=== PATIENT | male | born 1965 | race Caucasian/White ===

== ENCOUNTER 2019-02-08 13:25 | Emergency (ER) | payer BC ==
[~2019-02-08] VITALS: Ht 190.5 cm; Wt 120.2 kg
--- OUTSIDE RECORDS SUMMARY | 2019-02-08 13:29 | XMS REPORT | Clinical Summary ---
Author Author [facility] Address Unknown Phone Unavailable Care Team Providers Care Nitrate Operator Name Role Phone PCP Unavailable Allergies No Known Allergies Medications End Date Status Medication Sig Dispensed Refills Start Date Active Missing or Non-Formulary Eliquis 5mg 0 Medication BID . 01/13/2019 metoprolol (LOPRESSOR) 50 Take 1 tablet 60 tablet 1 MG tablet (50 mg total) 8 by mouth 2 (two) times daily. 01/13/2019 furosemide (LASIX) 40 MG Take 1 tablet 30 tablet 1 tablet (40 mg total) 8 by mouth daily. Active Problems Problem Noted Date Atrial fibrillation with RVR 01/12/2018 Social History Date Tobacco Use Types Packs/Day Years Used Never Smoker Smokeless Tobacco: Never Used Sex Assigned at Date Recorded Not on file Industry Job Start Date Occupation Not on file Not on file Not on file Travel End Travel History Travel Start No recent travel history available. Last Filed Vital Signs Not on file Plan of Treatment Not on file Procedures Comments Procedure Name Priority Date/Time Associated Diagnosis RHYTHM STRIP - SCAN 08/30/2018 5:50 PM CDT after 02/07/2018 Results * RHYTHM STRIP - SCAN (08/30/2018 5:50 PM CDT) Narrative Performed At after 02/07/2018 Insurance Payer Benefit Subscriber ID Type Phone Address Plan / Group BLUE [employer]UE [employer] BCBS OS xxxxxxxxxxxx PPO [phone] [address] [place]/PP[place] [address] O Advance Directives For more information, please contact: [address] [address] Date Inactivated Comments Code Status Date Activated 01/13/2018 2:35 PM Full Code 01/12/2018 3:51 PM This code status was determined by: Patient 01/12/2018 3:51 PM Full Code 01/12/2018 1:48 PM This code status was determined by: Patient
--- OUTSIDE RECORDS SUMMARY | 2019-02-08 13:29 | XMS REPORT ---
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 Allergies, Adverse Reactions, Alerts Allergy Name Allergy Type Status Severity Reaction(s) Onset Date Inactive Date Treating Clinician Comments No Known Allergies DA Active U 2018-05-30 00:00:00 Medications This patient has no known medications. Results Test Description Test Time Test Comments Text Results Atomic Results Result Comments HEMOGLOBIN A1C 2018-01-13 09:17:00 HEMOGLOBIN A1C (BEAKER) (test xxdd=416) 5.4 % 4.3-6.1 RESPIRATORY PANEL [id number] 06:05:00* Test Item Value Reference Range Comments HUMAN METAPNEUMOVIRUS (BEAKER) (test uunp=3681) Not detected Not detected, Equivocal RHINOVIRUS (BEAKER) (test wopw=4271) Not detected Not detected, Equivocal INFLUENZA A (BEAKER) (test dedx=5006) Not detected Not detected, Equivocal INFLUENZA A (NO SUBTYPE) (test iwnj=3630) Not detected, Equivocal INFLUENZA A SUBTYPE H1 (BEAKER) (test acux=7728) Not detected, Equivocal INFLUENZA A SUBTYPE H3 (BEAKER) (test uonz=4537) Not detected, Equivocal INFLUENZA A SUBTYPE H1-2009 (BEAKER) (test hjps=6520) Not detected, Equivocal INFLUENZA B (BEAKER) (test bfah=8216) Not detected Not detected, Equivocal RESPIRATORY SYNCYTIAL VIRUS (BEAKER) (test zghn=9380) Not detected Not detected, Equivocal PARAINFLUENZA VIRUS 1 (BEAKER) (test jnfk=8124) Not detected Not detected, Equivocal PARAINFLUENZA VIRUS 2 (BEAKER) (test ibvz=2075) Not detected Not detected, Equivocal PARAINFLUENZA VIRUS 3 (BEAKER) (test hmlh=3837) Not detected Not detected, Equivocal PARAINFLUENZA VIRUS 4 (BEAKER) (test hyhl=9319) Not detected Not detected, Equivocal ADENOVIRUS (BEAKER) (test scaf=7039) Not detected Not detected, Equivocal CORONAVIRUS 229E (BEAKER) (test ceuu=0650) Not detected Not detected, Equivocal CORONAVIRUS HKU1 (BEAKER) (test grgc=4593) Not detected Not detected, Equivocal CORONAVIRUS NL63 (BEAKER) (test twbn=1502) Not detected Not detected, Equivocal CORONAVIRUS OC43 (BEAKER) (test ufhz=7219) Not detected Not detected, Equivocal BORDETELLA PERTUSSIS (BEAKER) (test mhnz=8832) Not detected Not detected, Equivocal CHLAMYDOPHILA PNEUMONIAE (BEAKER) (test hrqg=5704) Not detected Not detected, Equivocal MYCOPLASMA PNEUMONIAE (BEAKER) (test ydxm=0666) Not detected Not detected, Equivocal Other viruses and bacteria not targeted by this PCR panel cannot be excluded; th erefore clinical correlation and follow up of serology, culture results, and oth er molecular studies is required. The results are not intended to be used as the sole means for clinical diagnosis or patient management decisions. This sample was tested at the [facility] using the [employer] Film[employer] rray Respiratory Panel. It is FDA cleared and has been verified and approved by the [facility] for clinical use on nasal swab specim ens. It is not FDA-cleared for use on bronchial wash/lavage samples. However, fo r this sample type, validation was performed and test characteristics were deter mined and approved, by [facility] Status4 Diagnostics laboratory for clinical use u nder the Clinical Laboratory Improvement Amendments (CLIA) of 1988 requirements. Therefore, FDA clearance is not required. This laboratory is CLIA-certified and [employer] [place] (CAP)-accredited to perform high complexity t esting.CBC W/PLT COUNT & AUTO [id number] 05:46:00* Test Item Value Reference Range Comments WHITE BLOOD CELL COUNT (BEAKER) (test uyon=728) 15.0 K/ L 3.5-10.5 RED BLOOD CELL COUNT (BEAKER) (test grus=087) 4.05 M/ L 4.63-6.08 HEMOGLOBIN (BEAKER) (test slre=750) 12.4 GM/DL 13.7-17.5 HEMATOCRIT (BEAKER) (test hjgg=065) 39.2 % 40.1-51.0 MEAN CORPUSCULAR VOLUME (BEAKER) (test vbrq=788) 96.8 fL 79.0-92.2 MEAN CORPUSCULAR HEMOGLOBIN (BEAKER) (test ngvn=811) 30.6 pg 25.7-32.2 MEAN CORPUSCULAR HEMOGLOBIN CONC (BEAKER) (test mgsw=025) 31.6 GM/DL 32.3-36.5 RED CELL DISTRIBUTION WIDTH (BEAKER) (test lkli=873) 13.2 % 11.6-14.4 PLATELET COUNT (BEAKER) (test esvj=739) 234 K/CU MM 150-450 MEAN PLATELET VOLUME (BEAKER) (test hnwc=215) 10.5 fL 9.4-12.4 NUCLEATED RED BLOOD CELLS (BEAKER) (test uyll=685) 0 /100 WBC 0-0 NEUTROPHILS RELATIVE PERCENT (BEAKER) (test jady=452) 82 % LYMPHOCYTES RELATIVE PERCENT (BEAKER) (test tmtj=365) 10 % MONOCYTES RELATIVE PERCENT (BEAKER) (test hnoy=665) 8 % EOSINOPHILS RELATIVE PERCENT (BEAKER) (test enlb=408) 0 % BASOPHILS RELATIVE PERCENT (BEAKER) (test fzzd=693) 0 % NEUTROPHILS ABSOLUTE COUNT (BEAKER) (test deqq=826) 12.27 K/ L 1.78-5.38 LYMPHOCYTES ABSOLUTE COUNT (BEAKER) (test wypm=092) 1.44 K/ L 1.32-3.57 MONOCYTES ABSOLUTE COUNT (BEAKER) (test lnpn=828) 1.19 K/ L 0.30-0.82 EOSINOPHILS ABSOLUTE COUNT (BEAKER) (test gpxe=001) 0.01 K/ L 0.04-0.54 BASOPHILS ABSOLUTE COUNT (BEAKER) (test jchl=528) 0.04 K/ L 0.01-0.08 IMMATURE GRANULOCYTES-RELATIVE PERCENT (BEAKER) (test noew=2044) 1 % 0-1 [id number] 05:43:00* Test Item Value Reference Range Comments MAGNESIUM (BEAKER) (test glje=004) 2.4 mg/dL 1.6-2.6 BASIC METABOLIC [id number] 05:43:00* Test Item Value Reference Range Comments SODIUM (BEAKER) (test ueyk=664) 139 meq/L 136-145 POTASSIUM (BEAKER) (test pxwp=929) 4.4 meq/L 3.5-5.1 CHLORIDE (BEAKER) (test wwte=011) 107 meq/L 98-107 CO2 (BEAKER) (test arzg=735) 26 meq/L 22-29 BLOOD UREA NITROGEN (BEAKER) (test dvdt=208) 20 mg/dL 7-21 CREATININE (BEAKER) (test oeta=300) 0.78 mg/dL 0.57-1.25 GLUCOSE RANDOM (BEAKER) (test hgzp=210) 114 mg/dL 70-105 CALCIUM (BEAKER) (test wrbn=970) 8.9 mg/dL 8.4-10.2 EGFR (BEAKER) (test gotr=2033) 105 mL/min/1.73 sq m ESTIMATED GFR IS NOT ACCURATE CREATININE CLEARANCE IN PREDICTING GLOMERULAR FILTRATION RATE. ESTIMATED GFR IS NOT APPLICABLE FOR DIALYSIS PATIENTS. TROPONIN [id number] 05:37:00* Test Item Value Reference Range Comments TROPONIN I (BEAKER) (test nkgn=026) 0.03 ng/mL 0.00-0.03 Troponin I (TnI) levels must be interpreted in the context of the presenting sym ptoms and the clinical findings. Elevated TnI levels indicate myocardial damage, but are not specific for ischemic heart disease. Elevated TnI levels are seen in patients with other cardiac conditions (including myocarditis and congestive h eart failure), and slight TnI elevations occur in patients with other conditions , including sepsis, renal failure, acidosis, acute neurological disease, and per sistent tachyarrhythmia.CT, CHEST WITH IV CONTRAST- PE TEST [id number] 21:41:00FINAL REPORT EXAM: CT of the chest, with contrast, PE protocol CLINICAL HISTORY: Shortness of breath. Acute dyspnea. TECHNIQUE: Chest CT was performed with intravenous contrast utilizing a PE protocol. 2-D and 3-D reformatted images were obtained. This exam was performed according to our departmental dose optimization program which includes automated exposure control, adjustment of the mA and/or kV according to patient's size and/or use of iterative reconstructive technique. COMPARISON: None FINDINGS: LOWER NECK: Within normal limits.AIRWAYS, PLEURA AND LUNGS: Patent central tracheobronchial tree. Mild diffuse bilateral interlobular septal thickening and groundglass haziness, most pronounced in the lung bases compatible with interstitial edema. Small bilateral pleural effusions. Mild bibasilar atelectatic changes. No pneumothorax.VESSELS: Within normal limits. No pulmonary embolism.HEART: Mild cardiomegaly. No pericardial effusion.ANASTASIA AND MEDIASTINUM: Subcentimeter nonenlarged and mildly enlarged mediastinal lymph nodes, measuring up to 10 mm in short axis in the subcarinal region. These are nonspecific and may be reactive.VISUALIZED UPPER ABDOMEN: Mild diffuse pericholecystic haziness and gallbladder sludge, partially imaged.SOFT TISSUES: Within normal limits.BONES: No suspicious osseous lesions. Mild degenerative changes of the visualized spine. IMPRESSION:No pulmonary embolism.Mild pulmonary interstitial edema and small bilateral pleural effusions.Mild cardiomegaly.Partially imaged diffuse pericholecystic haziness for which a right upper quadrant ultrasound is recommended for further evaluation. Signed: Lakia Blake Verified Date/Time: 01/12/2018 21:41:59 Reading Location: [address] Transitional Reading Room , CHEST, 1 VIEW, NON [id number] 21:05:00Reason for exam:-> shortness of breath, coughShould this be performed at the bedside?->YesFINAL REPORT Chest, one view HISTORY: Shortness of breath COMPARISON: None. DISCUSSION: Lungs are clear without focal consolidation. Card iomediastinal silhouette is enlarged. No acute osseous abnormality. No pleural e ffusion or pneumothorax. Visualized portions of the upper abdomen are unremarkab le. IMPRESSION: Enlargement of the cardiomediastinal silhouette. Otherwise, no a cute cardiopulmonary abnormality. Signed: Rolo Fernández Verified Date/Ti me: 01/12/2018 21:05:43 Reading Location: [facility] [id number] Consult Reading Room T4, FREE 2018-01-12 16:21:00* Test Item Value Reference Range Comments FREE T4 (BEAKER) (test grym=515) 1.18 ng/dL 0.70-1.48 TSH/FREE T4 IF [id number] 15:50:00* Test Item Value Reference Range Comments THYROID STIMULATING HORMONE (BEAKER) (test htvy=263) 0.27 uIU/mL 0.35-4.94 [id number] 15:31:00* Test Item Value Reference Range Comments MAGNESIUM (BEAKER) (test bhgn=530) 2.2 mg/dL 1.6-2.6 BASIC METABOLIC [id number] 15:31:00* Test Item Value Reference Range Comments SODIUM (BEAKER) (test wvhq=049) 135 meq/L 136-145 POTASSIUM (BEAKER) (test ujdz=347) 4.3 meq/L 3.5-5.1 CHLORIDE (BEAKER) (test auho=623) 105 meq/L 98-107 CO2 (BEAKER) (test svuq=273) 23 meq/L 22-29 BLOOD UREA NITROGEN (BEAKER) (test souj=879) 18 mg/dL 7-21 CREATININE (BEAKER) (test zzgd=365) 0.80 mg/dL 0.57-1.25 GLUCOSE RANDOM (BEAKER) (test uhqm=247) 134 mg/dL 70-105 CALCIUM (BEAKER) (test bhfk=527) 9.0 mg/dL 8.4-10.2 EGFR (BEAKER) (test afib=5684) 102 mL/min/1.73 sq m ESTIMATED GFR IS NOT ACCURATE CREATININE CLEARANCE IN PREDICTING GLOMERULAR FILTRATION RATE. ESTIMATED GFR IS NOT APPLICABLE FOR DIALYSIS PATIENTS. LIPID [id number] 15:31:00* Test Item Value Reference Range Comments TRIGLYCERIDES (BEAKER) (test neru=224) 99 mg/dL CHOLESTEROL (BEAKER) (test aote=057) 186 mg/dL HDL CHOLESTEROL (BEAKER) (test ousi=990) 34 mg/dL LDL CHOLESTEROL CALCULATED (BEAKER) (test idyz=073) 132 mg/dL Triglyceride Reference Range: Low Risk <150 Borderline 150-199 High Risk 200-499 Very High Risk >=500Cholesterol Reference Range: Low Risk <200 Borderline 200-239 High Risk >240HDL Cholesterol Reference Range: Low Risk >=60 High Risk <40LDL Cholesterol Reference Range: Optimal <100 Near Optimal 100-129 Borderline 130-159 High 160-189 Very High >=190 PT/APTT 2018-01-12 15:30:00* Test Item Value Reference Range Comments PROTIME (BEAKER) (test jdyl=380) 15.7 seconds 11.7-14.7 INR (BEAKER) (test jxov=472) 1.3 <=5.9 PARTIAL THROMBOPLASTIN TIME (BEAKER) (test iceb=691) 42.0 seconds 22.5-36.0 RECOMMENDED COUMADIN/WARFARIN INR THERAPY RANGESSTANDARD DOSE: 2.0 - 3.0 Inclu ronda: PROPHYLAXIS for venous thrombosis, systemic embolization; TREATMENT for mini ous thrombosis and/or pulmonary embolus.HIGH RISK: Target INR is 2.5-3.5 for pat ients with mechanical heart valves.CBC W/PLT COUNT & AUTO [id number] 15:20:00* Test Item Value Reference Range Comments WHITE BLOOD CELL COUNT (BEAKER) (test mnns=701) 15.2 K/ L 3.5-10.5 RED BLOOD CELL COUNT (BEAKER) (test tfui=303) 4.31 M/ L 4.63-6.08 HEMOGLOBIN (BEAKER) (test sfbh=714) 13.3 GM/DL 13.7-17.5 HEMATOCRIT (BEAKER) (test vumm=229) 41.3 % 40.1-51.0 MEAN CORPUSCULAR VOLUME (BEAKER) (test eokv=381) 95.8 fL 79.0-92.2 MEAN CORPUSCULAR HEMOGLOBIN (BEAKER) (test oese=435) 30.9 pg 25.7-32.2 MEAN CORPUSCULAR HEMOGLOBIN CONC (BEAKER) (test cfyx=731) 32.2 GM/DL 32.3-36.5 RED CELL DISTRIBUTION WIDTH (BEAKER) (test mflq=390) 13.2 % 11.6-14.4 PLATELET COUNT (BEAKER) (test glbb=543) 243 K/CU MM 150-450 MEAN PLATELET VOLUME (BEAKER) (test izyh=587) 10.4 fL 9.4-12.4 NUCLEATED RED BLOOD CELLS (BEAKER) (test efme=438) 0 /100 WBC 0-0 NEUTROPHILS RELATIVE PERCENT (BEAKER) (test qzoq=137) 93 % LYMPHOCYTES RELATIVE PERCENT (BEAKER) (test aeaw=571) 5 % MONOCYTES RELATIVE PERCENT (BEAKER) (test nrem=234) 2 % EOSINOPHILS RELATIVE PERCENT (BEAKER) (test iash=806) 0 % BASOPHILS RELATIVE PERCENT (BEAKER) (test dgfe=456) 0 % NEUTROPHILS ABSOLUTE COUNT (BEAKER) (test xlmx=920) 14.14 K/ L 1.78-5.38 LYMPHOCYTES ABSOLUTE COUNT (BEAKER) (test tqlp=847) 0.68 K/ L 1.32-3.57 MONOCYTES ABSOLUTE COUNT (BEAKER) (test gzje=892) 0.28 K/ L 0.30-0.82 EOSINOPHILS ABSOLUTE COUNT (BEAKER) (test zkti=225) 0.00 K/ L 0.04-0.54 BASOPHILS ABSOLUTE COUNT (BEAKER) (test jwli=600) 0.02 K/ L 0.01-0.08 IMMATURE GRANULOCYTES-RELATIVE PERCENT (BEAKER) (test binw=8047) 1 % 0-1
--- OUTSIDE RECORDS SUMMARY | 2019-02-08 13:29 | XMS REPORT | Clinical Summary ---
Author Author [facility] Address Unknown Phone Unavailable Care Team Providers Care Industrial Services Worker Name Role Phone Asked, No Pcp PCP Unavailable Allergies No Known Allergies Medications End Date Status Medication Sig Dispensed Refills Start Date 12/05/2018 amIODarone (PACERONE) 200 Take 1 tablet 60 tablet 0 MG tablet (200 mg 9 total) by mouth every 12 (twelve) hours for 30 days. 11/10/2018 predniSONE (DELTASONE) 10 follow 1 Package 0 mg tablet pack package 9 directions 12/06/2018 metoprolol succinate XL Take 1 tablet 30 tablet 0 (TOPROL-XL) 25 mg 24 hr (25 mg total) 9 tablet by mouth daily for 30 days. 12/05/2018 albuterol (PROAIR Inhale 2 18 g 0 HFA,PROVENTIL puffs every 6 9 HFA,VENTOLIN HFA) 90 (six) hours mcg/actuation inhaler as needed for wheezing for up to 30 days. 12/05/2018 apixaban (ELIQUIS) 5 mg Take 1 tablet 60 tablet 0 tablet (5 mg total) 9 by mouth 2 (two) times a day for 30 days. Active Problems Problem Noted Date Atrial fibrillation with RVR 11/03/2018 Diarrhea 11/03/2018 Encounters Care Team Description Date Type Specialty Abhilash Castillo MD Left heart cath w lv gram cors [94181 (CPT)] 11/03/2018 Surgery Procedural Cardiology Daniel Vidal DO Rizvi, Farhan, MD Atrial fibrillation with RVR (HCC) (Primary Dx) 11/03/2018 [facility] General Internal Medicine - Encounter 11/05/2018 11/03/2018 Travel after 02/07/2018 Social History Date Tobacco Use Types Packs/Day Years Used Never Smoker Smokeless Tobacco: Never Used Drinks/Week oz/Week Comments Alcohol Use Never Alcohol Habits Answer Date Recorded How often do you have a drink containing alcohol? Never 11/03/2018 How many drinks containing alcohol do you have on Not asked a typical day when you are drinking? How often do you have six or more drinks on one Not asked occasion? Sex Assigned at Date Recorded Not on file Industry Job Start Date Occupation Not on file Not on file Not on file Travel End Travel History Travel Start No recent travel history available. Last Filed Vital Signs Reading Time Taken Comments Vital Sign 129/68 11/05/2018 10:28 AM CDT Blood Pressure 83 11/05/2018 10:28 AM CDT Pulse 36.2 C (97.2 F) 11/05/2018 10:28 AM CDT Temperature 21 11/05/2018 10:28 AM CDT Respiratory Rate 95% 11/05/2018 10:28 AM CDT Oxygen Saturation - - Inhaled Oxygen Concentration 130 kg (285 lb 8 oz) 11/04/2018 11:50 PM CDT Weight 190.5 cm (6' 3") 11/03/2018 5:12 PM CDT Height 35.69 11/03/2018 5:12 PM CDT Body Mass Index Plan of Treatment Health Maintenance Due Date Last Done Comments COLONOSCOPY SCREENING 2015 SHINGLES VACCINES (#1) 2015 INFLUENZA VACCINE 12/16/2018 Procedures Comments Procedure Name Priority Date/Time Associated Diagnosis XR CHEST 1 VW PORTABLE Routine 11/05/2018 7:55 AM CDT ESTIMATED GFR Routine 11/05/2018 5:30 AM CDT HC COMPLETE BLD COUNT Routine 11/05/2018 W/AUTO DIFF 5:30 AM CDT COMPREHENSIVE METABOLIC Routine 11/05/2018 PANEL 5:[address] CHEST WO CONTRAST STAT 11/04/2018 4:18 PM CDT ECG 12-LEAD STAT 11/04/2018 1:08 PM CDT ECHOCARDIOGRAM Routine 11/04/2018 TRANSESOPHAGEAL W DOPPLER 1:02 PM CDT COLORFLOW ANTI XA, UNFRACTIONATED Timed 11/04/2018 8:32 AM CDT ESTIMATED GFR Routine 11/04/2018 8:32 AM CDT BASIC METABOLIC PANEL Routine 11/04/2018 8:32 AM CDT LIPID PANEL Routine 11/04/2018 8:32 AM CDT CBC HEMOGRAM Routine 11/04/2018 8:32 AM CDT ECG 12-LEAD STAT 11/04/2018 5:[address] ABDOMEN PELVIS WO Routine 11/04/2018 CONTRAST 5:35 AM CDT ANTI XA, UNFRACTIONATED Timed 11/03/2018 11:57 PM CDT TROPONIN Timed 11/03/2018 3:57 PM CDT CV LEFT HEART CATH LV Routine 11/03/2018 GRAM WITH CORS 2:34 PM CDT ECHOCARDIOGRAM 2D Routine 11/03/2018 COMPLETE W MMODE SPECTRAL 1:06 PM CDT COLOR DOPPLER (57418) THYROID STIMULATING Routine 11/03/2018 HORMONE 9:41 AM CDT HEPATIC FUNCTION PANEL Routine 11/03/2018 9:41 AM CDT TROPONIN Timed 11/03/2018 9:14 AM CDT ECG ED PRELIMINARY Routine 11/03/2018 INTERPRETATION 7:48 AM CDT [place] [facility], E/M Routine 11/03/2018 30-74 MINUTES 7:48 AM CDT XR CHEST 1 VW STAT 11/03/2018 7:47 AM CDT ANTI XA, UNFRACTIONATED STAT 11/03/2018 7:42 AM CDT PARTIAL THROMBOPLASTIN STAT 11/03/2018 TIME (PTT) 7:42 AM CDT PROTHROMBIN TIME WITH INR STAT 11/03/2018 7:42 AM CDT ESTIMATED GFR STAT 11/03/2018 7:42 AM CDT B NATRIURETIC PEPTIDE STAT 11/03/2018 7:42 AM CDT TROPONIN STAT 11/03/2018 7:42 AM CDT COMPREHENSIVE METABOLIC STAT 11/03/2018 PANEL 7:42 AM CDT HC COMPLETE BLD COUNT STAT 11/03/2018 W/AUTO DIFF 7:42 AM CDT ECG 12-LEAD STAT 11/03/2018 7:05 AM CDT after 02/07/2018 Results * XR Chest 1 Vw Portable (11/05/2018 7:55 AM CDT) Specimen Narrative Performed At EXAM: [facility] XR CHEST 1 VW PORTABLE INDICATION: shortness of breath COMPARISON: Chest AP dated 11/03/2018. IMPRESSION: Unchanged since prior exam. Minimal cardiomegaly. Minimal arthrosis right acromioclavicular joint. Minimal degenerative changes thoracic spine. [id number] Procedure Note Interface, Radiology Results Incoming - 11/05/2018 8:01 AM CDT EXAM: XR CHEST 1 VW PORTABLE INDICATION: shortness of breath COMPARISON: Chest AP dated 11/03/2018. IMPRESSION: Unchanged since prior exam. Minimal cardiomegaly. Minimal arthrosis right acromioclavicular joint. Minimal degenerative changes thoracic spine. [facility]-[id number] Performing Organization Address City/State/Zipcode Phone Number [facility] [address] [place] [address] * Estimated GFR (11/05/2018 5:30 AM CDT) Only the most recent of 3 results within the time period is included. Estimated GFR >=90 mL/min/1.73 m2 [place] Comment: SPIRITISM CatergoryUnitsFormerly [facility] G1 >=90 Normal or high G2 60-89Mildly decreased [id number] Mildly to moderately decreased F1w10-88 Moderately to severely decreased G4 15-29Severely decreased G5 <15Kidney failure The eGFR was calculated using the Chronic Kidney Disease Epidemiology Collaboration (CKD-EPI) equation. Interpretation is based on recommendations of the National Kidney Foundation-Kidney Disease Outcomes Quality Initiative (NKF-KDOQI) published in 2014. Specimen Plasma specimen Performing Organization Address City/State/Zipcode Phone Number [facility] [address] [facility] [place] [address] PATHOLOGY AND GENOMIC MEDICINE [facility] [address] * CBC with platelet and differential (11/05/2018 5:30 AM CDT) Only the most recent of 2 results within the time period is included. WBC 11.8 (H) 4.2 - 11.0 k/uL [facility] RBC 4.60 4.04 - 5.86 m/uL [facility] HGB 13.9 13.0 - 17.3 g/dL [facility] HCT 42.1 34.0 - 45.0 % [facility] MCV 91.5 80.0 - 98.0 fL [facility] MCH 30.2 27.0 - 34.0 pg [facility] MCHC 33.0 31.5 - 36.5 g/dL [facility] RDW - SD 41.0 37.0 - 51.0 fL [facility] MPV 10.1 7.4 - 10.4 fL [facility] Platelet count 212 150 - 400 k/uL [facility] Nucleated RBC 0.00 /100 WBC [facility] Neutrophils 92.2 (H) 36.0 - 66.0 % [facility] Lymphocytes 5.8 (L) 24.0 - 44.0 % [facility] Monocytes 1.5 0.0 - 6.0 % [facility] Eosinophils 0.0 0.0 - 6.0 % [facility] Basophils 0.1 0.0 - 1.2 % [facility] Immature 0.4 0.0 - 1.0 % [place] granulocytes [facility] Specimen Blood Performing Organization Address City/State/Zipcode Phone Number [facility] [address] [place] [address] PATHOLOGY AND GENOMIC MEDICINE [facility] [address] [place] [address] HOSPITAL * Comprehensive metabolic panel (11/05/2018 5:30 AM CDT) Only the most recent of 2 results within the time period is included. [facility] Signature Sodium 140 135 - 150 mEq/L [facility] Potassium 4.3 3.5 - 5.0 mEq/L [facility] Chloride 101 98 - 112 mEq/L [facility] CO2 28 24 - 31 mmol/L [facility] Anion gap 11@ANIO 7 - 15 mEq/L [facility] BUN 13 7 - 18 mg/dL [facility] Creatinine 0.90 0.70 - 1.20 mg/dL [facility] Glucose 151 (H) 65 - 100 mg/dL [facility] Calcium 9.3 8.3 - 10.2 mg/dL [facility] Protein 7.0 6.3 - 8.3 g/dL [facility] Albumin 3.4 (L) 3.5 - 5.0 g/dL [facility] A/G ratio 0.9 0.7 - 3.8 [facility] Alkaline 107 0 - 129 U/L [place] phosphatase [facility] AST 18 10 - 50 U/L [facility] ALT 27 5 - 50 U/L [facility] Total bilirubin 0.8 0.2 - 1.2 mg/dL [facility] Specimen Plasma specimen Performing Organization Address City/State/Zipcode Phone Number [facility] [address] [place] [address] PATHOLOGY AND GENOMIC MEDICINE [place] [phone] [facility] * CT Chest Wo Contrast (11/04/2018 4:18 PM CDT) Specimen Narrative Performed At [facility]AMINATION: [facility] CHEST WO CONTRAST CLINICAL HISTORY: Lung nodulesolid nodule on initial screen6 mm TECHNIQUE: Multiple axial images of the chest were obtained without intravenous contrast. The lack of intravenous contrast reduces the sensitivity of detecting solid organ disease and evaluating vasculature. Sagittal and coronal computerized reformatted images were also obtained.Automatic exposure control and iterative reconstruction techniques used to reduce dose. COMPARISON: None. IMPRESSION: Extensive reticular nodular changes with innumerable less than 0.5 cm nodules fill the right lower lobe and to a lesser extent peripherally throughout the right upper lobe left upper lobe and left lower lobe. Finding is worrisome for a multifocal pneumonia. Atypical infection cannot be excluded and clinical correlation is recommended. Interstitial thickening is noted throughout the lung bases. Extensive peribronchial wall thickening in the lung bases right greater than left compatible with bronchitis. Small bilateral pleural effusions No significant lymphadenopathy The heart is nonenlarged Images upper abdomen are unremarkable Both examination is recommended as an underlying malignancy cannot entirely be excluded Age related changes are present throughout the bony structures without evidence of a suspicious focal lesion. Procedure Note [facility], Radiology Results Incoming - 11/04/2018 4:25 PM CDT EXAMINATION: CT CHEST WO CONTRAST CLINICAL HISTORY: Lung nodule solid nodule on initial screen 6 mm TECHNIQUE: Multiple axial images of the chest were obtained without intravenous contrast. The lack of intravenous contrast reduces the sensitivity of detecting solid organ disease and evaluating vasculature. Sagittal and coronal computerized reformatted images were also obtained.Automatic exposure control and iterative reconstruction techniques used to reduce dose. COMPARISON: None. IMPRESSION: Extensive reticular nodular changes with innumerable less than 0.5 cm nodules fill the right lower lobe and to a lesser extent peripherally throughout the right upper lobe left upper lobe and left lower lobe. Finding is worrisome for a multifocal pneumonia. Atypical infection cannot be excluded and clinical correlation is recommended. Interstitial thickening is noted throughout the lung bases. Extensive peribronchial wall thickening in the lung bases right greater than left compatible with bronchitis. Small bilateral pleural effusions No significant lymphadenopathy The heart is nonenlarged Images upper abdomen are unremarkable Both examination is recommended as an underlying malignancy cannot entirely be excluded Age related changes are present throughout the bony structures without evidence of a suspicious focal lesion. Performing Organization Address City/State/Zipcode Phone Number [facility] [address] [place] [address] * ECG 12 lead (11/04/2018 1:08 PM CDT) Only the most recent of 3 results within the time period is included. Ventricular 83 [facility] rate Atrial rate 83 [facility] [place] interval 150 [facility] QRSD interval 100 [facility] QT interval 378 [facility] QTC interval 444 [facility] P axis 1 65 [facility] QRS axis 1 79 [facility] T wave axis 12 [facility] EKG impression Normal sinus rhythm-Normal [facility] MUSE ECG-In automated comparison with ECG of 04-NOV-2018 05:51,-Sinus rhythm has replaced Atrial fibrillation- Specimen Narrative Performed At Performing Organization Address [facility] Phone Number [facility] MUSE [address] [place] [address] * Echocardiogram transesophageal (11/04/2018 1:02 PM CDT) MAX Pred HR 166.44 [facility] 85 of MPHR 141.47 [facility] Calc MPHR 166.44 bpm [facility] Pred Exer Dur 9.69 [facility] R1 Pred METS R1 9.97 [facility] Specimen Narrative Performed At [facility] No LA/ALYSHA clot Normal LV size with severely depressed LV function Performing Organization Address [facility] Phone Number [facility] [address] [place] [address] * Anti Xa, unfractionated (11/04/2018 8:32 AM CDT) Only the most recent of 3 results within the time period is included. Anti Xa, <0.10 (L)Comment: Therapeutic 0.30 - 0.70 U/mL [place] unfractionated Range: 0.30 - 0.70 U/mL [facility] Specimen Blood Performing Organization Address City/[facility]/Zipcode Phone Number [facility] [address] [place] [address] PATHOLOGY AND GENOMIC MEDICINE [place] [phone] * CBC hemogram (11/04/2018 8:32 AM CDT) WBC 9.7 4.2 - 11.0 k/uL [facility] RBC 4.17 4.04 - 5.86 m/uL [facility] HGB 12.8 (L) 13.0 - 17.3 g/dL [facility] HCT 39.5 34.0 - 45.0 % [facility] MCV 94.7 80.0 - 98.0 fL [facility] MCH 30.7 27.0 - 34.0 pg [facility] MCHC 32.4 31.5 - 36.5 g/dL [facility] RDW - SD 44.2 37.0 - 51.0 fL [facility] MPV 10.0 7.4 - 10.4 fL [facility] Platelet count 205 150 - 400 k/uL [facility] Nucleated RBC 0.00 /100 WBC [facility] Specimen Blood Performing Organization Address City/State/Zipcode Phone Number [facility] [address] [facility] [place] [address] PATHOLOGY AND GENOMIC MEDICINE [address] * Lipid panel (11/04/2018 8:32 AM CDT) Cholesterol 160 0 - 199 mg/dL [facility] Triglycerides 153 (H) 0 - 149 mg/dL [facility] HDL cholesterol 34 (L) 40 - 9,999 mg/dL [facility] LDL cholesterol 132 (H)Comment: Result 0 - 99 mg/dL [place] obtained by direct LDL SPIRITISM measurement [facility] Lipid panel See below [place] interpretation Comment: SPIRITISM Total Cholesterol [place] (mg/dL) [facility] LDL Cholesterol (mg/dL) <200 Desirable <100 Optimal 200-239Borderline -[id number] 29Near or above optimal >=240High 130-159Borderline- high 160-189High >=190Very high HDL Cholesterol (mg/dL) Triglycerides (mg/dL) <40Low <150 Normal >=60 High 150-199Borderline- high 200-499High >=500Very high Risk Catergories that modify LDL goals. Risk Catergories LDL goal (mg/dL) CHD and CHD risk equivalent <100 (10-year risk >20%) Multiple (2+) risk factors <130 (10-year risk=<20%) 0-1 risk factors <160 (<10-year risk) Defining levels of lipids in metabolic syndrome Triglycerides >=150 mg/dL HDL Cholesterol Men <40 mg/dL Women <50 mg/dL Non-HDL cholesterol is a second target for therapy in persons with high triglycerides (>=200 mg/dL) Specimen Plasma specimen Performing Organization Address City/State/Zipcode Phone Number [facility] [address] [place] [phone] PATHOLOGY AND GENOMIC MEDICINE [facility] [address] * Basic metabolic panel (11/04/2018 8:32 AM CDT) Sodium 138 135 - 150 mEq/L [facility] Potassium 4.0 3.5 - 5.0 mEq/L [facility] Chloride 102 98 - 112 mEq/L [facility] CO2 24 24 - 31 mmol/L [facility] Anion gap 12@ANIO 7 - 15 mEq/L [facility] BUN 12 7 - 18 mg/dL [facility] Creatinine 0.80 0.70 - 1.20 mg/dL [facility] Glucose 146 (H) 65 - 100 mg/dL [facility] Calcium 8.8 8.3 - 10.2 mg/dL [facility] Specimen Plasma specimen Performing Organization Address City/State/Zipcode Phone Number [facility] [address] [place] [phone] PATHOLOGY AND GENOMIC MEDICINE [facility] [address] * CT Abdomen Pelvis Wo Contrast (11/04/2018 5:35 AM CDT) Specimen Narrative Performed At EXAMINATION:CT ABDOMEN PELVIS WO CONTRAST [facility] CLINICAL HISTORY:53 years Male Abd painunspecified, Nauseavomiting, painful hernia TECHNIQUE:Multiple axial images of the abdomen and pelvis were obtained in helical fashion without intravenous administration of iodinated contrast. Sagittal and coronal computerized reformatted images were also obtained. The lack of intravenous contrast reduces the sensitivity of detecting solid organ disease. CT imaging was performed with iterative reconstruction techniques and/or automated exposure control to reduce radiation dose. Comparison: 01/03/2015. IMPRESSION: Lower Chest: There are numerous scattered punctate nodules at the lung bases.There is also mild to moderate septal thickening. Abdomen: Liver: Subcentimeter cyst in segment 4 of the liver. Gallbladder/Biliary: The gallbladder is normal. There is no evidence of intra or extrahepatic biliary ductal dilatation. Spleen: The spleen is normal in size. Pancreas: There is fatty infiltration of pancreas. Adrenal Glands: The adrenal glands are unremarkable. Kidneys: The kidneys are unremarkable. No mass, hydronephrosis or calculi. Vascular: The abdominal aorta is nonaneurysmal. Nodes: No enlarged retroperitoneal or mesenteric lymphadenopathy. Bowel: There is sigmoid diverticulosis without acute diverticulitis. There is a small fat-containing umbilical hernia. Ascites/fluid collections: No ascites or fluid collections. Pelvis: Lymphovascular:No adenopathy. Reproductive organs: Unremarkable. Bladder: Unremarkable Other:None. 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 SUMMARY: 1.Numerous scattered punctate pulmonary nodules at the lung bases with mild to moderate septal thickening. Recommend dedicated chest CT for further evaluation. These are not seen on the prior study. 2.Small fat-containing umbilical hernia. [id number] Procedure Note Hm Interface, Radiology Results Incoming - 11/04/2018 8:00 AM CDT EXAMINATION: CT ABDOMEN PELVIS WO CONTRAST CLINICAL HISTORY:53 years Male Abd pain unspecified, Nausea vomiting, painful hernia TECHNIQUE: Multiple axial images of the abdomen and pelvis were obtained in helical fashion without intravenous administration of iodinated contrast. Sagittal and coronal computerized reformatted images were also obtained. The lack of intravenous contrast reduces the sensitivity of detecting solid organ disease. CT imaging was performed with iterative reconstruction techniques and/or automated exposure control to reduce radiation dose. Comparison: 01/03/2015. IMPRESSION: Lower Chest: There are numerous scattered punctate nodules at the lung bases. There is also mild to moderate septal thickening. Abdomen: Liver: Subcentimeter cyst in segment 4 of the liver. Gallbladder/Biliary: The gallbladder is normal. There is no evidence of intra or extrahepatic biliary ductal dilatation. Spleen: The spleen is normal in size. Pancreas: There is fatty infiltration of pancreas. Adrenal Glands: The adrenal glands are unremarkable. Kidneys: The kidneys are unremarkable. No mass, hydronephrosis or calculi. Vascular: The abdominal aorta is nonaneurysmal. Nodes: No enlarged retroperitoneal or mesenteric lymphadenopathy. Bowel: There is sigmoid diverticulosis without acute diverticulitis. There is a small fat-containing umbilical hernia. Ascites/fluid collections: No ascites or fluid collections. Pelvis: Lymphovascular: No adenopathy. Reproductive organs: Unremarkable. Bladder: Unremarkable Other: None. 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 SUMMARY: 1. Numerous scattered punctate pulmonary nodules at the lung bases with mild to moderate septal thickening. Recommend dedicated chest CT for further evaluation. These are not seen on the prior study. 2. Small fat-containing umbilical hernia. [id number] Performing Organization Address City/State/Zipcode Phone Number [facility] [address] [place] [address] * Troponin (11/03/2018 3:57 PM CDT) Only the most recent of 3 results within the time period is included. Troponin 0.006 0.000 - 0.040 ng/mL [place] [facility] effective[facility] 09/21/2018 at 10:00 am The new method has a 99th percentile cutoff of 0.040 ng/mL Specimen Plasma specimen Performing Organization Address City/State/Zipcode Phone Number [facility] [address] [facility] [place] [address] PATHOLOGY AND GENOMIC MEDICINE [facility] [address] [facility] [place] [address] * Cv laborer pipelines procedure (11/03/2018 2:34 PM CDT) Specimen Narrative Performed At [employer] [facility] Cardiac Catheterization Operative Report Arpit Whitehead [id number] 11/03/2018 Indications for the procedure include: CHF. Procedures: 1. Selective Coronary Angiogram 2. Moderate sedation was adminstered under physician supervision of patient consciousness,, respiration, oximetry, hemodynamics beginning at 1412 for a total period of 30 minutes. Procedure Details The risks, benefits, complications, treatment options, and expected outcomes were discussed with the patient. The patient and/or family concurred with the proposed plan, giving informed consent. Patient was brought to the laborer pipelines after IV hydration was begun and oral premedication was given. He was further sedated with fentanyl and midazolam. He was prepped and draped in the usual manner. Using Seldinger access technique, a 6 [place] sheath was placed in the radial artery. Angiograms were done in different projections of the left and right coronaries. Interventions: None. After the procedure was completed, sedation was stopped and the sheaths and catheters were all removed. Hemostasis was achieved with a TR band. Findings: 1.Normal left main. 2.The LAD is very large up to the midportion and then tapers off.No significant atherosclerosis is seen. 3.Ramus intermedius is a medium-sized branch which is angiographically normal. 3.The left circumflex is large sized angiographically normal. 4.Right coronary artery is dominant and very large sized and has no significant atherosclerosis. 5.Slow flow is seen in all the coronary arteries. Estimated Blood Loss:Minimal Complications:None; patient tolerated the procedure well. Disposition: PACU - hemodynamically stable. Condition: stable Recommendations: 1. Non ischemic cardiomyopathy. 2. Medical management. Performing Organization Address City/State/Zipcode Phone Number [facility] [facility] [address] [place] [address] * Echocardiogram complete w contrast and 3D if needed (11/03/2018 1:06 PM CDT) Ao Root 3.46 cm [facility] Diameter AoV Area, Vmax 2.61 cm2 [facility] AoV Area, VTI 2.48 cm2 [facility] AoV Mean PG 2.59 mmHg [facility] AoV Peak PG 4.15 mmHg [facility] AoV Vmax 1.02 m/s [facility] AoV VTI 0.16 m [facility] BSA Joyce 2.71 m2 [facility] BSA 2.60 m2 [facility] IVS,d 0.89 cm [facility] IVS/LVPW,2D 0.88 [facility] Left Atrium 4.19 cm [facility] Dimension Anterior LV,d 5.86 cm [facility] LV EF,2D 30.92 % [facility] LV,s 5.18 cm [facility] LVOT area 4.41 cm2 [facility] LVOT Diam,S 2.37 cm [facility] LVOT Vmax 0.60 m/s [facility] LVOT VTI 0.09 m [facility] LVPWD,d 1.01 cm [facility] PV Pk Grad 2.12 mmHg [facility] PV VMAX 0.73 m/s [facility] MV E A ratio 1.37 [facility] AoV area i VTI 0.95 cm2/m2 [facility] BSA [place] MR Vmax 4.50 m/s [facility] BMI 37.12 kg/m2 [facility] E wave 246.16 msec [facility] decelartion time MV Peak A Vishal 0.58 m/s [facility] MV valve area p 3.08 cm2 [facility] 1/2 method MV Peak E Vishal 0.80 m/s [facility] MV stenosis 71.39 ms [facility] pressure 1/2 time AV LVOT peak 1.44 mmHg [facility] gradient Ascending aorta 2.95 cm [facility] Ao Root 3.46 cm [facility] Diameter MV mean 1.21 mmHg [facility] gradient LV SYS VOL 128.51 ml [facility] LV MORRISON VOL 170.72 ml [facility] LA area s A4C 28.00 cm2 [facility] LV SI Teich 2D 16.26 ml/m2 [facility] LV SV Teich 2D 42.21 ml [facility] LV Vol s Teich 128.51 ml [facility] PSAX LVOT CI 1.62 l/min/m2 [facility] LVOT CO 4.21 l/min [facility] LVOT HR for 105.10 bpm [facility] LVOT CO LVOT SI 15.43 ml/m2 [facility] MR peak grad 4.51 mmHg [facility] MV Vmax 1.06 m [facility] MV VTI Tips 0.37 m [facility] BSA [place] 2.72 m2 [facility] AoV Vmn 0.77 [facility] IVS s 2D 0.95 [facility] LV FS Teich 2D 11.60 [facility] MV AE ratio 0.73 [facility] LV FS Cube 2D 11.60 [facility] LVOT Vmn 0.41 [facility] Pt Size 190.50 [facility] Pt Wt 134.72 [facility] Aov area Vmn 2.38 cm2 [facility] LVOT mean grad 0.80 mmHg [facility] MAX Pred HR 166.44 [facility] 85 of MPHR 141.47 [facility] AoV area I VMN 0.92 cm2/m2 [facility] bsa Calc MPHR 166.44 bpm [facility] IVS pct thck 6.07 % [facility] PLAX LV SI Cube 2D 24.00 ml/m2 [facility] LV SV Cube 2D 62.31 ml [facility] LV vol d cube 201.52 ml [facility] 2D LV vol s cube 139.21 ml [facility] 2D LVPW pct thck -1.13 % [facility] PLAX LVPW s PLAX 1.00 cm [facility] MV Decel slope 3.23 m/s2 [facility] Pred Exer Dur 9.70 [facility] R1 Pred METS R1 9.97 [facility] LA Vol MOD A4C 90.52 ml [facility] Velocity Ratio 0.59 m/s [facility] (V1/V2) EF 24.72 % [facility] E/A ratio 1.38 [facility] Specimen Narrative Performed At [facility] The left ventricular chamber size is mildly enlarged. Left ventricular systolic function is severely impaired. Left Ventricular ejection fraction is 20 - 25%. Wall motion is globally hypokinetic Normal right ventricular size and wall thickness. Global RV systolic function is mildly reduced. The left atrium size by volume is moderately dilated. LA volume index is 34ml/m2 No prior echo for comparison Performing Organization Address [facility]code Phone Number [facility] [address] [place] [address] * Thyroid stimulating hormone (11/03/2018 9:41 AM CDT) TSH 0.92 0.27 - 4.20 uIU/mL [facility] Specimen Plasma specimen Performing Organization Address City/[facility]/Zipcode Phone Number [facility] [address] [facility], [place] [address] PATHOLOGY AND GENOMIC MEDICINE [address] * Hepatic function panel (11/03/2018 9:41 AM CDT) Albumin 3.5 3.5 - 5.0 g/dL [facility] Total bilirubin 0.5 0.2 - 1.2 mg/dL [facility] Bilirubin <0.2 0.0 - 0.4 mg/dL [place] direct [facility] Alkaline 114 0 - 129 U/L [place] phosphatase [facility] Protein 6.6 6.3 - 8.3 g/dL [facility] ALT 32 5 - 50 U/L [facility] AST 22 10 - 50 U/L [facility] Specimen Plasma specimen Performing Organization Address City/State/Zipcode Phone Number [facility] [place] [address] [place] [address] PATHOLOGY AND GENOMIC MEDICINE [facility] [address] * ECG ED Preliminary Interpretation - Not an Order (11/03/2018 7:48 AM CDT) Narrative Performed At Daniel Vidal DO 11/05/20184:21 PM ECG ED Preliminary Interpretation - Not an Order Performed by: Daniel Vidal DO Authorized by: Daniel Vidal DO ECG reviewed by ED Physician in the absence of a clinical analyst: yes Interpretation: Interpretation: abnormal Rate: ECG rate:156 Rhythm: Rhythm: atrial fibrillation Ectopy: Ectopy: PVCs ST segments: ST segments:Non-specific * CRITICAL CARE (11/03/2018 7:48 AM CDT) Narrative Performed At Daniel Vidal DO 11/05/20184:21 PM Critical Care Performed by: Daniel Vidal DO Authorized by: Daniel Vidal DO Critical care provider statement: Critical care time (minutes):45 Critical care time was exclusive of:Separately billable procedures and treating other patients Critical care was necessary to treat or prevent imminent or life-threatening deterioration of the following conditions:Circulatory failure Critical care was time spent personally by me on the following activities:Development of treatment plan with patient or surrogate, discussions with consultants, discussions with primary provider, evaluation of patient's response to treatment, examination of patient, interpretation of cardiac output measurements, obtaining history from patient or surrogate, ordering and performing treatments and interventions, ordering and review of laboratory studies, ordering and review of radiographic studies, pulse oximetry, re-evaluation of patient's condition and review of old charts * XR Chest 1 Vw (11/03/2018 7:47 AM CDT) Specimen Narrative Performed At EXAM: [facility] XR CHEST 1 VW INDICATION: Shortness of breath COMPARISON: None. IMPRESSION: No consolidation, pleural effusion, or pneumothorax. Minimal cardiomegaly. [id number] Procedure Note Hm Interface, Radiology Results Incoming - 11/03/2018 7:55 AM CDT EXAM: XR CHEST 1 VW INDICATION: Shortness of breath COMPARISON: None. IMPRESSION: No consolidation, pleural effusion, or pneumothorax. Minimal cardiomegaly. [facility]-[id number] Performing Organization Address City/[facility] Hospitalcode Phone Number [facility] [address] [place] [address] * Partial thromboplastin time, activated (11/03/2018 7:42 AM CDT) PTT 30.7 23.0 - 36.0 sec [place] Comment: [facility]ISM PTT therapeutic range for [facility] unfractionated heparin is HOSPITAL 61.0-112.0 seconds which corresponds to Anti-Xa 0.3-0.7 U/ml. Note:Change in Panic Value The PTT Panic Value is changing from 110 sec. to 100 sec. due to new instrumentation and reagents. Correlation studies have been performed to validate this result. Specimen Blood Performing Organization Address City/[facility] Hospitalcoks Phone Number [facility] [place] [address] [place] [address] PATHOLOGY AND GENOMIC MEDICINE [place] [facility] [place] [address] [place] [address] HOSPITAL * Prothrombin time with INR (11/03/2018 7:42 AM CDT) Prothrombin 13.0 11.5 - 14.5 sec [place] time [facility] INR 1.01 [place] Comment: SP[facility]ITISM For patients on anticoagulant [place] therapy, reference ranges HOSPITAL below: Indication: INR Value Treatment of Venous Thrombosis, 2.0-3.0 pulmonary emboli, or prophylaxis of a venous thrombosis, or systemic emboli. High dose, high risk patients 3.0-4.5 with mechanical valves. NOTE:INR values over 3.0 are sometimes associated with gastrointestinal hemorrhage, especially values over 4.0. Specimen Blood Performing Organization Address City/State/[facility] Hospitalcode Phone Number [facility] [place] [address] [place] [address] PATHOLOGY AND GENOMIC MEDICINE [facility] [address] [place] [phone] HOSPITAL * B natriuretic peptide (11/03/2018 7:42 AM CDT) BNP 230 (H) 0 - 100 pg/mL [facility] Specimen Blood Performing Organization Address City/[facility]/Zipcode Phone Number [facility] [address] [place] [address] PATHOLOGY AND GENOMIC MEDICINE [facility] [address] [place] [phone] HOSPITAL after 02/07/2018 Insurance Type Payer Benefit Subscriber ID Effective Phone Address Plan / Dates Group PPO [facility] xxxxxxxxxxxx [id number] BLUE CROSS resent Advance Directives For more information, please contact: [phone] 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
[2019-02-08] MEDS ORDERED: DIAZEPAM 2 MG TAB PO ONE (16:45)
[2019-02-08] MEDS ORDERED: KETOROLAC TROMETHAMINE 60 MG/2 ML VIAL IM ONE (16:45)
[2019-02-08] MEDS ORDERED: DIAZEPAM 5 MG TAB PO ONE (17:00)
--- NOTE | 2019-02-08 17:41 | Diagnostic Imaging Report ---
LEFT FOOT - 3 Image(s) HISTORY: Leg pain, numbness COMPARISON: None available. FINDINGS: Bones: Diffusely decreased mineralization of the osseous structures limits bone detail. A chronic appearing fracture deformity at the medial base of the first distal phalanx. The fifth middle phalanx is not well visualized, there is a 6 mm chronic appearing ossification in the expected region of the phalanx, this may reflect a congenital or developmental variant. Otherwise, no acute displaced fracture. No aggressive osseous lesion. Small plantar calcaneal enthesophyte. Joints: Mild degenerative changes of the tibiotalar joint. Soft tissues: The soft tissues appear unremarkable. IMPRESSION: 1. No acute radiographic abnormality. 2. Mild tibiotalar osteoarthrosis. 3. Chronic plantar calcaneal enthesopathy. Signed by: Dr. Bryce Andrade D.O., M.M.M. on 02/08/2019 5:38 PM
[2019-02-08] MEDS ORDERED: ULTRAM50 MG PO (17:51)
[2019-02-08 19:02] VITALS: BP 132/93
== END 2019-02-08 19:17 | disposition home or self-care (01) ==
LOC: ER 13:25
DX: M79.672 Pain in left foot (principal); R26.2 Difficulty in walking, not elsewhere classified
CPT/HCPCS: 36415; 73630; 82948; 99283; J1885